=== PATIENT | male | born 1975 | race Caucasian/White ===

== ENCOUNTER 2017-03-07 07:44 | Day surgery (SDC) | payer BC ==
[2017-03-07] MEDS ORDERED: Lactated Ringers 1,000 ML IV SCH (08:30)
[2017-03-07] MEDS ORDERED: Propofol 200 MG/20 ML SDV IV ONE (09:30)
[2017-03-07] MEDS ORDERED: Lidocaine 2% 100 MG/5 ML Syringe IVPUSH ONE (09:30)
[2017-03-07] MEDS ORDERED: Midazolam 1 MG/ML 2 ML SDV IV ONE (09:30)
--- NOTE | 2017-03-07 09:45 | PCM.OPNOTE ---
- General Post-Op/Procedure Note Date of Surgery/Procedure: 03/07/17 Operative Procedure(s): egd with bx Findings: gastritis esophagitis irregular z line Pre Op Diagnosis: epigastric abd pain. heme + stools Post-Op Diagnosis: gastritis. esophagitis. irregular z line Anesthesia Technique: MAC Primary Surgeon: Andrés Philip Anesthesia Provider: Olga Graham Pathology: stomach and esophagus Complications: None Condition: Good Free Text/Narrative:: see dictation
[2017-03-07 10:46] VITALS: BP 157/96
--- NOTE | 2017-03-07 10:52 | OR ---
DATE OF OPERATION: 03/07/2017 SURGEON: Andrés Philip MD PROCEDURE PERFORMED: Esophagogastroduodenoscopy with cold forceps biopsy. PREOPERATIVE DIAGNOSES: History of heme-positive stools, epigastric abdominal pain, reflux. POSTOPERATIVE DIAGNOSES: Gastritis and esophagitis. INDICATIONS FOR PROCEDURE: This is a 41-year-old white male, who presents with the above-mentioned laboratory findings. He was offered and accepted an EGD. DESCRIPTION OF OPERATION: After an excellent IV sedation was administered, the bite block was inserted. The flexible endoscope was passed without difficulty down the patient's esophagus into the stomach. The stomach was insufflated. Scope was passed through the pylorus to the second portion duodenum and slowly withdrawn. The following findings were noted. Duodenum was unremarkable. The stomach demonstrated some diffuse gastritis. Biopsies were taken, especially in the area of the antrum. GE junction was at 40 cm. There was evidence of esophageal reflux disease. Biopsies were taken there as well. The stomach was deflated. The scope was removed. The remainder of our esophageal exam was unremarkable. /[id number] /MODL
== END 2017-03-07 10:41 | disposition home or self-care (01) ==
LOC: FB.SDS 07:44
PROVIDERS: ATTEND Surgery
DX: K29.50 Unspecified chronic gastritis without bleeding (principal); K31.9 Disease of stomach and duodenum, unspecified; K20.9 Esophagitis, unspecified; R19.5 Other fecal abnormalities; K21.9 Gastro-esophageal reflux disease without esophagitis; J30.9 Allergic rhinitis, unspecified; E78.5 Hyperlipidemia, unspecified; E66.9 Obesity, unspecified; Z68.41 Body mass index [BMI] 40.0-44.9, adult; M10.9 Gout, unspecified; Z79.899 Other long term (current) drug therapy
CPT/HCPCS: 43239; 88305; 88313; 88342; J2250; J2704; J7120